=== PATIENT | male | born 1995 | race Caucasian/White ===

== ENCOUNTER 2016-05-29 11:55 | Emergency (ER) | payer OTHER ==
[~2016-05-29] VITALS: Ht 182.9 cm; Wt 71.0 kg
[2016-05-29 11:58] VITALS: BP 144/82; PULSE 72; RESP 16; TEMP 98; O2SAT 99
[2016-05-29] MEDS ORDERED: LIDOCAINE 1%/EPINEPHrine 1:100,000 SOLN 20 ML VIAL INFIL ONE (12:15)
[2016-05-29] MEDS ORDERED: TETANUS/DIPHTHERIA TOXOID ADULT 0.5 ML VIAL IM ONE (12:15)
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
--- NOTE | 2016-05-29 12:52 | RADRPT ---
EXAM DATE/TIME: 05/29/2016 12:17 [facility] COMPARISON: No previous studies available for comparison. INDICATIONS : Laceration to mid forearm. MEDICAL HISTORY : None. SURGICAL HISTORY : None. ENCOUNTER: Initial ACUITY: 1 day PAIN SCORE: 8/10 LOCATION: Right upper extremity FINDINGS: Two view examination of the right forearm demonstrates no evidence of fracture or dislocation. Bony mineralization is normal. Soft tissue laceration mid to distal forearm. CONCLUSION: No acute fracture. Soft tissue laceration. Misael Smith MD on May 29, 2016 at 12:50 Board Certified Radiologist. This report was verified electronically.
[2016-05-29] MEDS ORDERED: CEPH-460 PO (13:05)
== END 2016-05-29 14:47 | disposition home or self-care (01) ==
LOC: NEPC 11:55
DX: S51.811A Laceration without foreign body of right forearm, initial encounter (principal); S00.01XA Abrasion of scalp, initial encounter; Y04.2XXA Assault by strike against or bumped into by another person, initial encounter
CPT/HCPCS: 12002; 73090; 90471; 90714; 96365; 99283; J0690